=== PATIENT | female | born 1990 | race Caucasian/White ===

== ENCOUNTER 2022-07-19 01:17 | Emergency (ER) | payer MEDICAID ==
[~2022-07-19] VITALS: Ht 157.5 cm; Wt 53.0 kg
[2022-07-19] MEDS ORDERED: BACITRACIN ZINC OINT UDPKT TOP ONE (03:45)
[2022-07-19] MEDS ORDERED: HYDROCODONE/ACETAMINOPHEN 5/325MG TABLET PO ONE (03:45)
[2022-07-19] MEDS ORDERED: LIDOCAINE HCL/PF 1% 10 MG/ML 5ML VIAL INFIL ONE (03:45)
[2022-07-19] MEDS ORDERED: CEPH500C2 MT (05:26)
[2022-07-19] MEDS ORDERED: SULF1TAB48 MT (05:26)
[2022-07-19 05:40] VITALS: BP 107/66
== END 2022-07-19 05:42 | disposition home or self-care (01) ==
LOC: ER 01:17
DX: L03.312 Cellulitis of back [any part except buttock and flank] (principal); L02.212 Cutaneous abscess of back [any part, except buttock and flank]; Z90.49 Acquired absence of other specified parts of digestive tract; Z98.890 Other specified postprocedural states
CPT/HCPCS: 10060; 99283; J3490